=== PATIENT | male | born 1930 | race Caucasian/White ===

== ENCOUNTER → 2017-11-28 | Outpatient (CLI) | payer OTHER | LOC: FIMAGING 16:15 | PROVIDERS: ATTEND Internal Medicine Cardiovascular Disease | DX: I51.7 Cardiomegaly (principal); Z95.810 Presence of automatic (implantable) cardiac defibrillator ==

== ENCOUNTER 2017-12-11 10:52 | Day surgery (SDC) | payer OTHER ==
[2017-12-11] MEDS ORDERED: DIAZEPAM 5 MG TAB PO ONE (11:00)
[2017-12-11] MEDS ORDERED: diphenhydrAMINE 25 MG CAP PO ONE (11:00)
[2017-12-11] MEDS ORDERED: ceFAZolin 2 GM/SWFI 2 GM/20 ML SYR IVP ONE (11:00)
[2017-12-11] MEDS ORDERED: NS 1,000 ML IV ONE (11:00)
[2017-12-11] MEDS ORDERED: BACITRACIN IRRIGATION/NS 50,000 UNITS/1,000 ML BTL IRR ONE (11:00)
[2017-12-11 11:44] LABS: PLATELET COUNT 185 10^3/uL (150-400)
[2017-12-11 12:00] LABS: INR 1.24 (0.83-1.16); PROTIME(PATIENT) 15.8 SEC (12.0-15.0)
--- NOTE | 2017-12-11 12:10 | PDHPUP ---
History & Physical Update H&P update statement: This history and physical update is based on an assessment of the patient which was completed after admission or registration (within 24 hours), but prior to the surgery/procedure. H&P update: H&P reviewed & patient examined, no change in patient's condition since H&P completed
--- NOTE | 2017-12-12 09:05 | CPEKG ---
Heart Rate: 80 RR Interval: 750 QRSD Interval: 154 QT Interval: 452 QTC Interval: 522 QRS Baltic: 225 T Wave Baltic: 28 EKG Severity - ABNORMAL ECG - EKG Impression: AFIB/FLUTTER AND VENTRICULAR-PACED RHYTHM EKG Impression: PVC Electronically Signed By: Kemar Villar 15-Dec-2017 06:16:15
--- NOTE | 2017-12-13 09:27 | EPPROC ---
Electrophysiology Procedure Note: EP procedure was not performed since the pt was in AF
== END 2017-12-11 13:00 | disposition home or self-care (01) ==
LOC: FCATH 10:52
PROVIDERS: ATTEND Internal Medicine Cardiovascular Disease
DX: T82.190A Other mechanical complication of cardiac electrode, initial encounter (principal); I48.2 Chronic atrial fibrillation; Z53.09 Procedure and treatment not carried out because of other contraindication
CPT/HCPCS: J0690

== ENCOUNTER 2018-06-09 16:34 | Observation (INO) | payer OTHER ==
[2018-06-09] MEDS ORDERED: ACETAMINOPHEN 325 MG TAB PO PRN (16:54)
[2018-06-09 18:38] LABS: PLATELET COUNT 201 10^3/uL (150-400)
[2018-06-09 18:45] LABS: INR 1.68 (0.83-1.16); PROTIME(PATIENT) 19.9 SEC (12.0-15.0)
[2018-06-09] MEDS ORDERED: IOPAMIDOL (ISOVUE 370) 100 ML BTL IV ONE (18:55)
--- NOTE | 2018-06-09 19:35 | PDCARPN ---
Cardiology Progress Note Chief Complaint: Patient reports fatigue. Assessment/Plan: Assessment: Please see Dr. Lomas's office note dated 06/09/2018 to be used as official history and physical. 88-year-old male with significant past history that includes sick sinus syndrome with initial pacemaker implantation in 2002, diagnosed with nonischemic cardiomyopathy in August of 2013 with upgrade of device to Bi V AICD. Permanent atrial fibrillation, underwent AV node ablation , hypertension. 06/08/2018, patient admitted to [facility], after receiving 7 inappropriate shocks from his ICD. Device interrogation during his hospitalization, with increased sensitivities from 0.3-0.6. After discharge from hospital, was immediately seen by Dr. Lomas at our [place] office. Reviewing interrogations done during his hospitalization, a great deal of noise was noted in RV lead. This resulted in appropriate sensing and delivered therapy. This also results in inhibiting his patient's making. Due to this, [facility] with plans of RV lead revision. Plan: 1. Inappropriate AICD shock: Device check done at recent hospitalization at [facility] showing significant artifact and noise, indicating fracture lead. Patient is pacer dependent due to history of AV mel ablation. Admitted to PCU on continuous cardiac monitoring, with plans of lead revision done tomorrow with Dr. Lomas. Risks and benefits of procedure explained to patient and family, they verbalize understanding and are wanting to proceed. Patient will be made NPO after midnight. A magnet has been placed at patient's bedside, in case he does receive inappropriate shock, device therapy can be turned off. 2. History of nonischemic cardiomyopathy: Patient's most recent echocardiogram done our office showed EF of 55%, corrected with resynchronization therapy and medication management. Patient reports he did have an echocardiogram done at [facility], have requested that we get results for evaluation. He appears fairly euvolemic. Continue on home medication of metoprolol, lisinopril. Will plan on restarting his Lasix therapy after his procedure tomorrow. 3. Chronic atrial fibrillation: History AV node ablation, patient is V paced. He has been on anticoagulation of warfarin, INR today is 1.68. Will hold warfarin in preparation of procedure. Continue on beta-mily as mentioned above, continue Tikosyn. 4. Elevated troponin: Troponin on admission was 0.315. Patient denies of any chest pain, pressure, or symptoms suggesting of ischemia. Able to review troponin levels from [facility], in which it did show peaking last evening at 1.585, probably due to inappropriate AICD shock. 5. DVT prophylaxis: With plan of procedure tomorrow, will hold off on starting him on anticoagulation. Holding his warfarin also. Haim hose have been ordered. 6. Code status: Patient is a full code. 06/09/18 19:35 Subjective: Patient denies of any chest pressure or pain. Reports no shortness of breath. Denies of any orthopnea, PND, palpitations, lightheadedness, near-syncope or syncopal events. Reviewed/Discussed With: other (Dr Lomas and Dr Harrell) Objective: Vital Signs (8 Hrs) Temp Pulse Resp BP Pulse Ox 06/09/18 17:18 37.0 C 80 16 136/93 H 99 Intake/Output (24 Hrs) 06/08/18 06/09/18 06/10/18 05:59 05:59 05:59 Other: Weight 73.1 kg Result Diagrams: 06/09/18 18:00 06/10/18 03:35 Cardiac Labs: Cardiac Lab Results (72 Hrs) 06/09/18 18:00 Troponin I 0.315 H - Physical Exam Constitutional: WDWN, no apparent distress Ears, Nose, Mouth, Throat: moist mucous membranes Cardiovascular: regular rate and rhythm, systolic murmur (1-2/6 systolic murmur noted along left sternal border.), pulses symmetric bilat, No jugular vein distention, No carotid bruit Respiratory: clear to auscultate bilat, no crackles, no wheezes Gastrointestinal: normoactive bowel sounds Skin: warm, no edema Neurologic: AAOx3 Psychiatric: cooperative, interactive, following commands ICD10 Worksheet Patient Problems: Problems Problem Status Onset Arrhythmia Acute - ICD10 Problem Qualifiers (1) Arrhythmia Qualifiers: Arrhythmia type: unspecified cardiac arrhythmia Qualified Code(s): I49.9 - Cardiac arrhythmia, unspecified
[2018-06-09] MEDS: DOFETILIDE 0.125 MG CAP PO SCH (21:30)
[2018-06-10 04:55] LABS: INR 1.6 (0.83-1.16); PROTIME(PATIENT) 19.2 SEC (12.0-15.0)
[2018-06-10] MEDS ORDERED: ceFAZolin 2 GM/DEXTROSE 100 ML IV ONE (06:00)
[2018-06-10] MEDS ORDERED: BACITRACIN IRRIGATION/NS 50,000 UNITS/1,000 ML BTL IRR ONE (06:00)
[2018-06-10] MEDS ORDERED: NS 1,000 ML IV ONE (06:00)
[2018-06-10] MEDS ORDERED: LIDOCAINE 1% 300 MG/30 ML SDV ONE (07:35)
[2018-06-10] MEDS ORDERED: LIDO/EPI 1% **for epidural** 30 ML SDV ONE (07:35)
[2018-06-10] MEDS ORDERED: fentaNYL 100 MCG/2 ML INJ ONE ×2 (07:35→11:08)
[2018-06-10] MEDS ORDERED: MIDAZOLAM 2 MG/2 ML VIAL ONE ×2 (07:35→11:09)
[2018-06-10] MEDS ORDERED: BUPIVACAINE 0.5% 30 ML SDV ONE (07:35)
[2018-06-10] MEDS ORDERED: IOPAMIDOL (ISOVUE-300) 50 ML VIAL ONE (07:35)
--- NOTE | 2018-06-10 10:38 | PDPROPOC ---
Sedation Plan of Care Sedation Plan of Care: vital signs stable, mental status noted, patient educated of risks, benefits, alternatives, patient can tolerate sedation ASA Classification: ASA 2 Planned drugs: fentanyl, midazolam Mallampati Score: Class 2 Mallampati Reference Image: Patient passed 3-3-2 rule?: Yes
--- NOTE | 2018-06-10 12:11 | CPIP ---
DATE OF PROCEDURE: 06/10/2018 INDICATION: The patient is a pleasant 88-year-old male who has a history of a previous AV node ablat ion in the setting of atrial fibrillation. He had an initial pacemaker, which was implanted in February of 2003. After developing a cardiomyopathy, his pacemaker was upgraded to a biventricular ICD in Apr. At that time, he had a Sprint Guilherme lead placed. He presents now with 7 inappropr iate shocks related to noise in the pace/sense portion of the Sprint Guilherme lead. PROCEDURE: Downgrade of an existing biventricular implantable cardioverter defibrillator to a bivent ricular pacemaker. TECHNIQUE: Following informed consent and in the fasting state, the patient was brought to the [facility] catheterization laboratory. Prophylactic antibiotics were administered prior to cutting skin. Th e left chest was prepped and draped in the usual sterile fashion and 2% lidocaine was infiltrated int o the skin overlying the existing device. Using a #10 blade, a 4 cm incision was made. Using blunt and sharp dissection, the ICD capsule was i dentified and opened sharply. The existing device was then delivered from the field. Extensive diss ection of the existing wires was performed. We also freed up the previously placed right ventricular pacing lead that was capped at the time of his biventricular ICD upgrade in April of 2007. This lead was then capped. The Sprint Guilherme lead was disconnected from the header of the ICD. All 3 p ortions of this DF1-lead were then capped and replaced back in the pocket. The new biventricular pacemaker was brought to the field. The previously placed right ventricular le ad was individually tested with adequate capture and sensing. This lead was then placed into the rig ht ventricular port of the pacemaker. The existing atrial lead was then placed in the atrial port of the pacemaker, and finally, we disconnected the coronary sinus lead from the ICD, and placed this in the coronary sinus port of the pacemaker. The patient had appropriate biventricular pacing. The pocket was irrigated and the device and redundant portions of the leads were then placed in the p ocket. The pocket was then closed initially with 2 layers of interrupted suture with 2-0 and 3-0 Nils ryl and finally running 3-0 Stratafix for the skin. Steri-Strips and a dry dressing were applied. DEVICE INFORMATION: The existing right atrial lead was implanted March 03, 2003. This is a [employer] ientific 40, 87 lead, serial #[id number]. The Sprint Guilherme lead is a [employer] 69 49, 65 cm lead, serial #[id number], which is currently cappe d. This was implanted May 04, 2007. The right ventricular lead was implanted February 15, 2003, an d is a Guidant 40, 88 lead, serial #[id number]. The coronary sinus lead is a Alverix lead, model #4543, serial #[id number], implanted May 04, 2007. Testing of atrial lead was not performed. In the right ventricle, the capture threshold was 0.5 msec at 1.5 V with lead impedance of 782 ohms. There were no sensed R waves. The coronary sinus lead wa s not tested. The patient is currently programmed VVI. COMPLICATIONS: None. DISPOSITION: The patient will be transferred over to the PCU and admitted to the hospital for observ ation overnight and discharged tomorrow. /[id number]/MODL
--- NOTE | 2018-06-10 13:19 | ASMTCMCOM ---
CM Note CM Note Notes: CM spoke to JACOB Epps regarding d/c POC. Pt is a 88 y/o man admitted for a lead revision. Pt will d/c without any needs when medically stable. No therapies ordered at this time. CM available for changes. Plan: Independent Date Signed: 06/10/2018 01:18 PM Electronically Signed By:GERALD Finnegan
[2018-06-10] MEDS: FUROSEMIDE 20 MG TAB PO SCH (13:57)
[2018-06-10] MEDS: POTASSIUM CL 10 MEQ TAB PO SCH ×2 (13:57→20:03)
[2018-06-10] MEDS: LISINOPRIL 5 MG TAB PO SCH (13:57)
[2018-06-10] MEDS: DOCUSATE SODIUM 100 MG CAP PO SCH (13:57)
[2018-06-10] MEDS: DOFETILIDE 0.125 MG CAP PO SCH ×2 (13:57→20:02)
[2018-06-10] MEDS: ASPIRIN 81 MG CHEWABLE TAB PO SCH (13:57)
[2018-06-10] MEDS: PANTOPRAZOLE SODIUM 40 MG TAB PO SCH (13:57)
[2018-06-10] MEDS ORDERED: METOPROLOL SUCCINATE XR 25 MG TAB PO SCH (21:00)
[2018-06-10] MEDS ORDERED: ATORVASTATIN CALCIUM 20 MG TAB PO SCH (21:00)
[2018-06-11] MEDS: LISINOPRIL 5 MG TAB PO SCH (08:36)
[2018-06-11] MEDS: PANTOPRAZOLE SODIUM 40 MG TAB PO SCH (08:36)
[2018-06-11] MEDS: FUROSEMIDE 20 MG TAB PO SCH (08:36)
[2018-06-11] MEDS: DOFETILIDE 0.125 MG CAP PO SCH (08:36)
[2018-06-11] MEDS: POTASSIUM CL 10 MEQ TAB PO SCH (08:36)
[2018-06-11] MEDS: ASPIRIN 81 MG CHEWABLE TAB PO SCH (08:36)
[2018-06-11] MEDS: DOCUSATE SODIUM 100 MG CAP PO SCH (08:36)
[2018-06-11 11:43] VITALS: BP 90/70
--- NOTE | 2018-06-11 16:23 | CPEKG ---
Test Reason : OPEN Blood Pressure : / mmHG Vent. Rate : 080 BPM Atrial Rate : 084 BPM P-R Int : 144 ms QRS Dur : 162 ms QT Int : 453 ms P-R-T Axes : 000 219 028 degrees QTc Int : 523 ms Afib/flutter and ventricular-paced rhythm Confirmed by Bipin Shukla ([id number]) on 06/11/2018 4:23:11 PM Referred By: Confirmed By:Bipin Shukla
--- NOTE | 2018-06-11 16:30 | CPEKG ---
Test Reason : OPEN Blood Pressure : / mmHG Vent. Rate : 080 BPM Atrial Rate : 000 BPM P-R Int : 198 ms QRS Dur : 134 ms QT Int : 450 ms P-R-T Axes : 267 247 065 degrees QTc Int : 520 ms Afib/flutter and ventricular-paced rhythm Confirmed by Bipin Shukla ([id number]) on 06/11/2018 4:29:51 PM Referred By: Confirmed By:Bipin Shukla
--- NOTE | 2018-06-12 06:37 | GDS ---
ADMISSION DIAGNOSES: 1. Inappropriate automatic implantable cardioverter defibrillator shock felt to have fractured right ventricular lead. 2. History of nonischemic cardiomyopathy. 3. Chronic atrial fibrillation. 4. Hypertension. DISCHARGE DIAGNOSES: 1. Status post right ventricular lead revision. 2. Generator upgrade to biventricular pacemaker. 3. History of nonischemic cardiomyopathy. 4. Chronic atrial fibrillation. 5. Hypertension. PROCEDURES PERFORMED DURING HOSPITALIZATION: 1. Chest x-ray. 2. Computed tomographic angiography of subclavian and axillary veins. 3. Right ventricular automatic implantable cardioverter defibrillator lead capped. 4. Downgrade of biventricular to biventricular paced pacemaker, using previous capped right ventricular lead, pacemaker lead. 5. Electrocardiogram. HOSPITAL COURSE: Please see H and P, briefly the patient is an 88-year-old male with significant past history that includes sick sinus syndrome with an initial pacemaker implantation in 2002, diagnosed with nonischemic cardiomyopathy in August 2013 with upgrade to a Bi V AICD. He also has known history of permanent atrial fibrillation with previous AV node ablation, and hypertension. Patient recently admitted to [facility] for 7 inappropriate shocks from his ICD. Device interrogation done during that hospitalization did show a great deal of noise noted from the RV lead, thinking as potential cause of his inappropriate shock, with potential fracture. The patient was seen by Dr. Lomas in our office, on June 09, day of his discharge from the [facility], in which it was felt that the patient should have an RV lead revision done. He was admitted directly to PCU upon arrival. Upon arrival, he was placed on continuous cardiac monitoring, he has had suffered no further shocks from his device. He did undergo a CT of the left arm venogram, which suggested subclavian potentially was occluded, but due to artifact due to his leads, no consistent evaluation could be made from tests. Following morning, he was taken to the CVC, where Dr. Lomas assessed chest x-ray , discussed with the patient, who felt that he did not want to have a defibrillator anymore, and it was determined that with his previous capped RV lead from his pacemaker, it could be used, and disconnect his defibrillator RV lead. The patient was taken to the laboratory inspector, in which procedure was performed, RV defibrillator lead was capped with no complications, device was down graded to aid Medtronic generator, connecting to previously capped pacemaker leads to the RV, and CS lead. No complications. Patient was transferred back to the CVC , and ultimately to the PCU. There, the patient has been maintained with an underlying rhythm of atrial fibrillation, with ventricular paced beats, with no malignant arrhythmias noted. This morning he has been up and walking the unit without difficulties, he denies of any chest pain, pressure, or shortness of breath. PHYSICAL EXAMINATION: Done today. GENERAL APPEARANCE: Medium built, well- groomed male. He is alert and orientated to person, place, time, and situation, appears to be under no acute distress. VITAL SIGNS: Current blood pressure was 114/67; heart rate of 80, a ventricular paced rhythm; respirations 16, saturating 94% on room air, temperature of 36.6 degrees Celsius. HEENT: Head is normocephalic. Lips and tongue are pink and moist with no signs of cyanosis. Conjunctivae pink. NECK: Trachea is midline, 2+ carotid pulses bilaterally. No auscultated bruits. No jugular vein distention. RESPIRATORY: Lungs are clear to auscultation. No rhonchi, rales or wheezes. No accessory muscle use, no intercostal muscle retraction noted. CARDIAC: Regular rate, regular rhythm, S1, S2. No S3, S4, gallops, rubs, or murmurs noted. ABDOMEN: Soft, nontender, bowel sounds x4 quadrants. No organomegaly. No palpable masses. SKIN: [place], warm, dry. No cyanosis, no clubbing, no peripheral edema. VASCULAR: 2+ carotids bilateral, 2+ radials bilateral, 1+ dorsal pedal and posterior tibial pulses bilateral. Pacemaker insertion site, left anterior chest. Distal to clavicle and mid clavicular line, incision intact with Steri-Strips, no redness, swelling, or drainage, noted mild ecchymosis around the incision site, no hematoma. LABORATORY STUDIES: Drawn today show WBC of 9.49, hemoglobin of 14.4, hematocrit of 42.6, platelet count of 190. Sodium 140, potassium 4.2, chloride 107, CO2 was 23, BUN 19, creatinine 1.0. Glucose was 122. Calcium was 9.3. Note, patient on admission did have an elevated troponin of 0.315, with the following date downward declining at 0.314, it was noted at [facility] the night before his discharge, that he did have a troponin level peaking at 1.58, after his 7 AICD shocks. PROCEDURES: Chest x-ray showing no acute cardiopulmonary process with the AICD implantation, CTA of venogram as mentioned above, electrocardiogram done this morning showing underlying rhythm of atrial fibrillation with ventricular paced beat. A single premature ventricular contraction. Pacemaker implantation as mentioned above. DISCHARGE DISPOSITION: The patient will be discharged home in stable condition. He is under activity restriction, no strenuous activity for the next week. DISCHARGE MEDICATIONS: Please see discharge medication reconciliation sheet. Note, patient has been resumed on home warfarin, our office will make an appointment for him to be seen by his PCP, Dr. Thakkar, who controls his INRs, Friday of next week. DISCHARGE INSTRUCTIONS: Post generator device change instructions went over with the patient and his son including monitoring for signs of infection, bleeding precautions, activity restrictions, and medication compliancy. At the time of discharge, the patient and son verbalized understanding all instructions and have no questions or concerns. The patient has a followup device and wound check next weekend, will follow up with Dr. Lomas in approximately 3 weeks. Total time spent on discharge greater than 30 minutes. /[id number]/MODL MTDD
--- NOTE | 2018-06-12 12:20 | CPEKG ---
Test Reason : OPEN Blood Pressure : / mmHG Vent. Rate : 080 BPM Atrial Rate : 082 BPM P-R Int : 080 ms QRS Dur : 132 ms QT Int : 432 ms P-R-T Axes : 049 244 068 degrees QTc Int : 499 ms Ventricular-paced complexes Confirmed by Bipin Shukla ([id number]) on 06/12/2018 12:20:37 PM Referred By: Confirmed By:Bipin Shukla
== END 2018-06-11 16:00 | disposition home or self-care (01) ==
LOC: F2W 16:51
PROVIDERS: ADMIT Internal Medicine Cardiovascular Disease; ATTEND Internal Medicine Cardiovascular Disease
DX: T82.110A Breakdown (mechanical) of cardiac electrode, initial encounter (principal); I48.2 Chronic atrial fibrillation; I10 Essential (primary) hypertension; I42.9 Cardiomyopathy, unspecified; R79.89 Other specified abnormal findings of blood chemistry
CPT/HCPCS: 33221; 33241; 71046; 71275; 93005; C2621; G0378; J0690; J1644; J2250; J3010; Q9967; 82565-PO